=== PATIENT | female | born 1950 | race Caucasian/White ===

== ENCOUNTER 2016-10-20 14:08 | Emergency (ER) | payer OTHER ==
[2016-10-20 17:19] LABS: HEMOGLOBIN 16.3 gm/dl (12.3-15.3); RED BLOOD COUNT 5.2 M/UL (4.00-5.10); WHITE BLOOD COUNT 9.3 K/UL (4.5-11.0)
[2016-10-20 17:41] LABS: BUN/CREATININE RATIO 15 (0-10)
== END 2016-10-20 19:43 | disposition home or self-care (01) ==
LOC: ER1 14:08
PROVIDERS: Emergency Medicine
DX: K80.80 Other cholelithiasis without obstruction (principal); R31.9 Hematuria, unspecified
CPT/HCPCS: 36415; 80053; 81001; 83690; 84484; 85025; 85610; 85730; 87086; 93005; 99284

== ENCOUNTER → 2020-12-12 | Outpatient (CLI) | payer OTHER | LOC: RAD 16:52 | DX: M25.561 Pain in right knee (principal); M17.11 Unilateral primary osteoarthritis, right knee | CPT/HCPCS: 73564 ==